=== PATIENT | female | born 1985 | race Caucasian/White ===

== ENCOUNTER 2021-11-03 13:10 | Emergency (ER) | payer MEDICARE, OTHER ==
[2021-11-03 13:40] LABS: BASOPHILS # (AUTO) 0.1 10^3/uL (0.0-0.1); BASOPHILS % (AUTO) 0.4 %; EOSINOPHILS # (AUTO) 0.2 10^3/uL (0.0-0.7); EOSINOPHILS % (AUTO) 1.6 %; HCT - HEMATOCRIT 44.9 % (37.0-47.0); HGB - HEMOGLOBIN 15.3 g/dL (12.0-16.0); LYMPHOCYTES # (AUTO) 3.1 10^3/uL (1.5-3.5); LYMPHOCYTES % (AUTO) 27.4 %; MEAN CORPUSCULAR HEMOGLOBIN 30.6 pg (27.0-31.0); MEAN CORPUSCULAR HGB CONC 34.1 g/dL (32.0-36.0); MEAN CORPUSCULAR VOLUME 89.8 fL (81.0-99.0); MEAN PLATELET VOLUME 10.6 fL (7.9-10.8); MONOCYTES # (AUTO) 0.4 10^3/uL (0.0-1.0); MONOCYTES % (AUTO) 3.6 %; NEUTROPHILS # (AUTO) 7.4 10^3/uL (1.5-6.6); NEUTROPHILS % (AUTO) 66.4 %; PLT - PLATELET COUNT 176 10^3/uL (130-450); RED CELL DISTRIBUTION WIDTH 12.6 % (12.0-15.0); WHITE BLOOD COUNT 11.2 x10^3/uL (4.8-10.8)
[2021-11-03 13:56] LABS: BILIRUBIN,URINE NEGATIVE (NEGATIVE); GLUCOSE, URINE (UA) NEGATIVE (NEGATIVE); KETONES,URINE (UA) NEGATIVE (NEGATIVE); LEUKOCYTE ESTERASE, URINE NEGATIVE (NEGATIVE); NITRITE,URINE NEGATIVE (NEGATIVE); OCCULT BLOOD,URINE NEGATIVE (NEGATIVE); PH,URINE 7.5 PH (5.0-7.5); PROTEIN,URINE NEGATIVE (NEGATIVE); UROBILINOGEN,URINE 0.2 (NORMAL) E.U./dL (NORMAL)
[2021-11-03 13:57] LABS: CLARITY,URINE CLEAR (CLEAR)
[2021-11-03 13:58] LABS: HCG UR QUAL NEGATIVE
[2021-11-03 14:03] LABS: ALBUMIN 4.4 g/dL (3.2-5.5); ALBUMIN/GLOBULIN RATIO 1.2 (1.0-2.2); BILIRUBIN,TOTAL 0.6 mg/dL (0.2-1.0); CALCIUM 9.5 mg/dL (8.5-10.3); CREATININE 0.7 mg/dL (0.4-1.0); POTASSIUM 4.1 mmol/L (3.5-5.0)
--- NOTE | 2021-11-03 15:03 | ED Physician Documentation ---
History of Present Illness - Stated complaint Stated Complaint: R SIDE GROIN PX - Chief complaint Chief Complaint: Abd Pain - Additonal information Additional information: 36-year-old female presents the emergency department for evaluation of 3 weeks right lower quadrant abdominal pain. She has had no fevers no nausea or vomiting. The pain has been fairly persistent. Described as sharp and anytime she coughs sneezes or urinates she feels pain radiate directly to her back. She does have a history of endometriosis for which she unfortunately ended up with a left adnexal and oophorectomy. This pain feels similar. She is not currently taking any control. Tylenol and ibuprofen have failed to control the pain. Also has past surgical history that includes cholecystectomy and a tubal ligation. Review of Systems Constitutional: denies: Fever, Chills Eyes: reports: Reviewed and negative Nose: reports: Reviewed and negative Throat: reports: Reviewed and negative Cardiac: reports: Reviewed and negative Respiratory: reports: Reviewed and negative GI: reports: Abdominal Pain. denies: Nausea, Vomiting : denies: Dysuria, Frequency Skin: reports: Reviewed and negative Musculoskeletal: reports: Reviewed and negative PD PAST MEDICAL HISTORY - Allergies Allergies/Adverse Reactions: Allergies Allergy/AdvReac Type Severity Reaction Status Date / Time acetaminophen [From Vicodin] Allergy Anaphylaxis Verified 11/03/21 13:28 cephalexin [From Keflex] Allergy Hives Verified 11/03/21 13:28 hydrocodone [From Vicodin] Allergy Anaphylaxis Verified 11/03/21 13:28 Penicillins Allergy Hives Verified 11/03/21 13:27 PD ED PE NORMAL - General General: Alert and oriented X 3, No acute distress, Other (Morbidly obese) - HEENT HEENT: Atraumatic, Moist mucous membranes - Neck Neck: Supple, no meningeal sign. No: No adenopathy - Cardiac Cardiac: RRR, No murmur - Respiratory Respiratory: No respiratory distress - Abdomen Abdomen: Normal bowel sounds, Soft, Non tender (Focal tenderness in the right lower quadrant. No guarding or rebound. 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0 Sodium 135 Potassium 4.1 Chloride 100 L Carbon Dioxide 27 Anion Gap 8.0 BUN 9 Creatinine 0.7 Estimated GFR (MDRD) 95 Glucose 130 H Calcium 9.5 Total Bilirubin 0.6 AST 24 ALT 25 Alkaline Phosphatase 71 Total Protein 8.0 Albumin 4.4 Globulin 3.6 Albumin/Globulin Ratio 1.2 Lipase 74 H Urine Color LIGHT YELLOW Urine Clarity CLEAR Urine pH 7.5 Ur Specific [place] 1.010 Urine Protein NEGATIVE Urine Glucose (UA) NEGATIVE Urine Ketones NEGATIVE Urine Occult Blood NEGATIVE Urine Nitrite NEGATIVE Urine Bilirubin NEGATIVE Urine Urobilinogen 0.2 (NORMAL) Ur Leukocyte Esterase NEGATIVE Ur Microscopic Review NOT INDICATED Urine Culture Comments NOT INDICATED Urine HCG, Qual NEGATIVE - Rads (name of study) CT abd Radiology: Final report received (No significant abnormality) PD MEDICAL DECISION MAKING - ED course Complexity details: reviewed results, re-evaluated patient, considered differential, d/w patient ED course: 36-year-old female presents emergency department for about 3 weeks of right lower quadrant abdominal pain. Reports a history of endometriosis and has had surgery on her left adnexa and ovary in the past secondary to this. She has had no fevers no vomiting. The pain is fairly persistent worse when laying flat. Screening labs did not show any acute worrisome findings. A CT of the abdomen was also without any acute surgical concerns. I discussed with the patient that the likely cause of her symptoms may be a return of the endometriosis. She is trying to reestablish with her former OB. She may benefit from reinitiation of oral contraceptives. However she declined that today through the ER. She also reassuringly declined a limited prescription for narcotics. I have encouraged her to continue the use of Tylenol and ibuprofen [id number]. Emergent return precautions were otherwise discussed. Departure - Departure Disposition: 01 Home, Self Care Clinical Impression: RLQ abdominal pain Condition: Stable Record reviewed to determine appropriate education?: Yes Instructions: Endometriosis Comments: Cassius were seen in the emergency department today for evaluation of 3 weeks right lower abdominal tenderness. Your screening labs today including a blood chemistry, blood count and urine were all without any worrisome findings or significant abnormalities. We did do a CT of the abdomen and those results have been given to you. Reassuringly there were no findings today to suggest acute appendicitis, kidney stones or masses in the right ovary. It is likely that the return of this pain could be your endometriosis. 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 I do recommend that he continue the use of Tylenol and ibuprofen [id number] for any discomfort. If at any point you develop fevers, have uncontrolled vomiting, suddenly severe or different abdominal pain please return immediately to the ER for second evaluation.
--- NOTE | 2021-11-03 16:11 | CT Report ---
PROCEDURE: Abdomen/Pelvis W INDICATIONS: RLQ pain CONTRAST: IV CONTRAST: Isovue 300 ml: 100 PO CONTRAST: *NO PO CONTRAST TECHNIQUE: After the administration of intravenous contrast, 5 mm thick sections acquired from the diaphragms to the symphysis. 5 mm thick coronal and sagittal reformats were acquired. For radiation dose reducti on, the following was used: automated exposure control, adjustment of mA and/or kV according to jez ent size. COMPARISON: None. FINDINGS: Inferior chest: Mosaic groundglass attenuation, which may reflect small airway disease. No focal con solidation, pleural effusion, or pneumothorax. No cardiomegaly or pericardial effusion. Gallbladder: Cholecystectomy. Biliary tree: No intra-or extrahepatic biliary ductal dilatation. Liver: The liver demonstrates normal enhancement, size, and contour. Spleen: Normal enhancement, size and morphology is seen. Pancreas: No contour deforming mass or inflammatory change. Adrenals: Normal size without masses. Kidneys/ureters: Normal size and morphology. No solid masses or hydronephrosis. Vasculature: No evidence of aneurysm or other significant vascular pathology. Lymphatic system: No pathologic enlargement by size criteria. GI/mesentery: No evidence of intestinal obstruction. Normal appearance of the appendix. Peritoneum/Retroperitoneum: No free intraperitoneal gas or large collection. Urinary bladder: The urinary bladder is distended with a smooth thin wall. Pelvic organs: No significant abnormality. Bones/soft tissues: No significant abnormality. IMPRESSION: 1.No significant abnormality. Reviewed by: Mike Wright MD on 11/03/2021 4:10 PM PST Approved by: Mike Wright MD on 11/03/2021 4:10 PM PST Station ID: [id number]
[2021-11-03 17:13] VITALS: BP 131/86
[2021-11-03] MEDS: iohexoL-300 100 ML VIAL IVP ONE (20:10)
== END 2021-11-03 17:13 | disposition home or self-care (01) ==
LOC: ED 13:10
DX: R10.31 Right lower quadrant pain (principal)
CPT/HCPCS: 36415; 80053; 81001; 81003; 81025; 83690; 85025; 87086; 99283; 99284